=== PATIENT | male | born 1960 | race Caucasian/White ===

== ENCOUNTER → 2020-03-05 | Outpatient (CLI) | payer MEDICARE, OTHER ==
[2020-03-05 09:50] LABS: Appearance, Urine Clear (Clear); Bilirubin, Urine Neg (Neg); Color, Urine Yellow (P-Yellow); Glucose Qualitative, Urine Neg (Normal); Ketones, Urine 1+ (Neg); Leukocyte Esterase, Urine Neg (Neg); Nitrite, Urine Neg (Neg); Protein, Urine Neg (Neg); Source, Urine Clean Catch; Specific Gravity, Urine 1.025 (1.003-1.022); Urobilinogen, Urine NORM (Normal)
[2020-03-05 09:51] LABS: Blood, Urine 1+ (Neg)
[2020-03-05 09:57] LABS: Bacteria Not Seen /hpf; Red Blood Cells, Urine Rare /hpf (0-2); Squamous Epithelial Cells Rare /hpf (Few); White Blood Cells, Urine Not Seen /hpf (0-5)
== END | disposition home or self-care (01) ==
LOC: LAB EV 09:45 → LAB SHORT 09:45
PROVIDERS: Internal Medicine
DX: R35.0 Frequency of micturition (principal)
CPT/HCPCS: 81001

== ENCOUNTER 2020-12-19 14:33 | Inpatient (IN) | payer MEDICARE, OTHER ==
[~2020-12-19] VITALS: Ht 185.4 cm; Wt 66.2 kg
[2020-12-19] MEDS ORDERED: ESOM20 PO (14:44)
[2020-12-19] MEDS ORDERED: Colace100 MG PO (14:45)
[2020-12-19 17:09] LABS: BASOPHILS ABSOLUTE AUTO 0.04 K/mm3 (0.00-0.23); BASOPHILS PERCENT AUTO 0 % (0-2); EOSINOPHILS ABSOLUTE AUTO 0.02 K/mm3 (0.00-0.68); EOSINOPHILS PERCENT AUTO 0 % (0-6); Hematocrit 40.8 % (37.0-53.0); Hemoglobin 13.4 g/dL (13.5-17.5); IMMATURE GRAN ABSOLUTE AUTO 0.04 K/mm3 (0.00-0.10); IMMATURE GRAN PERCENT AUTO 0 % (0-1); LYMPHOCYTES ABSOLUTE AUTO 1.12 K/mm3 (0.84-5.20); LYMPHOCYTES PERCENT AUTO 10 % (21-46); MONOCYTES ABSOLUTE AUTO 0.66 K/mm3 (0.16-1.47); MONOCYTES PERCENT AUTO 6 % (4-13); Mean Corpuscular HGB 30.6 pg (26.0-34.0); Mean Corpuscular HGB Conc 32.8 g/dL (31.5-36.5); Mean Corpuscular Volume 93 fL (80-100); Mean Platelet Volume 10.4 fL (9.1-12.4); NEUTROPHILS ABSOLUTE AUTO 9.36 K/mm3 (1.96-9.15); NEUTROPHILS PERCENT AUTO 83 % (41-73); Platelet Count 237 K/mm3 (150-400); RDW Coefficient Variation 12.3 % (11.7-14.2); RDW Standard Deviation 42.5 fL (35.1-46.3); Red Blood Cell Count 4.38 M/mm3 (4.30-5.90); White Blood Cell Count 11.24 K/mm3 (4.00-11.30)
[2020-12-19 17:15] LABS: International Normalized Ratio 0.97; Prothrombin Time Results 10.5 Sec (9.7-11.5)
[2020-12-19 17:18] LABS: Alanine Aminotransfer (ALT/SGP 31 U/L (12-78); Albumin, Blood 3.6 g/dL (3.4-5.0); Alk Phos 85 U/L (50-136); Anion Gap 5 mmol/L (6-16); Aspartate Aminotrans (AST/SGOT 26 U/L (12-37); Bilirubin, Total 0.9 mg/dL (0.1-1.0); Blood Urea Nitrogen 13 mg/dL (8-24); Bun/Creatinine Ratio 16.1 (12.0-20.0); CO2, Blood 28 mmol/L (21-32); Calcium, Blood 8.6 mg/dL (8.5-10.1); Chloride, Blood 106 mmol/L (98-108); Creatinine, Blood 0.81 mg/dL (0.60-1.20); Globulin, Blood 3.7 g/dL (2.2-4.0); Glomerular Filtration Rate >60 (60-); Glucose, Blood 118 mg/dL (70-99); Potassium, Blood 4.2 mmol/L (3.5-5.5); Sodium, Blood 139 mmol/L (136-145); Total Protein, Blood 7.3 g/dL (6.4-8.2)
[2020-12-19] MEDS ORDERED: MIRALAX17 GM PO (18:33)
[2020-12-19 20:34] LABS: SARS-Cov-2 (COVID-19) PCR, MMC NEGATIVE (NEGATIVE)
[2020-12-20 04:07] LABS: Hematocrit 39.2 % (37.0-53.0); Mean Corpuscular HGB Conc 33.2 g/dL (31.5-36.5); Mean Corpuscular Volume 93 fL (80-100); Mean Platelet Volume 10.2 fL (9.1-12.4); Platelet Count 190 K/mm3 (150-400); RDW Coefficient Variation 12.3 % (11.7-14.2); RDW Standard Deviation 42.1 fL (35.1-46.3); White Blood Cell Count 9.42 K/mm3 (4.00-11.30)
[2020-12-20 04:24] LABS: Anion Gap 5 mmol/L (6-16); Blood Urea Nitrogen 12 mg/dL (8-24); Bun/Creatinine Ratio 17.9 (12.0-20.0); CO2, Blood 27 mmol/L (21-32); Calcium, Blood 8.1 mg/dL (8.5-10.1); Chloride, Blood 106 mmol/L (98-108); Creatinine, Blood 0.67 mg/dL (0.60-1.20); Glomerular Filtration Rate >60 (60-); Glucose, Blood 120 mg/dL (70-99); Potassium, Blood 3.5 mmol/L (3.5-5.5); Sodium, Blood 138 mmol/L (136-145)
--- NOTE | 2020-12-20 04:40 | NUR ---
SHIFT SUMMARY: PT HAS BEEN STABLE SINCE ADMISSION FOR LEFT HIP FX. PT A&O X4. VS WNL. PAIN BEING MANAGED WITH DILAUDID PER EMAR. VALENZUELA CATHETER PATENT AND DRAINING YELLOW URINE. 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 AT BEDSIDE WHO IS PT'S PRIMARY CAREGIVER. PER PT AND SPOUSE, PT AMBULATORY AT BASELINE W/FWW. PT HAS BEEN NPO SINCE MIDNIGHT FOR PLANNED SURGERY TODAY. IVF INFUSING PER ORDERS.
--- NOTE | 2020-12-20 10:22 | NUR ---
0710-[facility] report from previous RN Anuradha, pt sleeping in bed, in room with pt. bed in lowest position, bed rails up x 2, call light within reach 1020- dr Jensen in room consulting with pt/
--- NOTE | 2020-12-20 11:00 | NUR ---
anesthesiologist in room consulting with pt and
--- NOTE | 2020-12-20 12:08 | NUR ---
12/20/20 1206 Margarita Lucia PT RECIEVED TWO GRAMS OF ANCEF IVPB FROM DR BRYSON AT 1150
--- NOTE | 2020-12-20 16:24 | NUR ---
SHIFT SUMMARY: POST OP VSS AND CONTINUING FOR ANOTHER HR. PT'S IS IN ROOM WITH PT. PT IS TOLERATING PO INTAKE, CRUSHED PILLS, FLUIDS WHILE SITTING UP. PT WILL RECEIVE A SWALLOW STUDY TOMORROW. AQUACEL L HIP C/D/I, NO SHADOWING. CAPILLARY REFILL OPERATIVE LIMB <3 SECONDS, LIMB WARM/PINK, NO CALF TENDERNESS. VALENZUELA CATHETER PATENT/DRAINING CLEAR YELLOW URINE. PT RATES PAIN AT 3/10 FOLLOWING ANALGESIA PER AUG.
--- NOTE | 2020-12-20 17:21 | NUR ---
physical therapy in with pt and
[2020-12-21 04:31] LABS: BASOPHILS ABSOLUTE AUTO 0.03 K/mm3 (0.00-0.23); BASOPHILS PERCENT AUTO 0 % (0-2); EOSINOPHILS PERCENT AUTO 0 % (0-6); Hematocrit 32.2 % (37.0-53.0); Hemoglobin 10.6 g/dL (13.5-17.5); LYMPHOCYTES PERCENT AUTO 11 % (21-46); MONOCYTES PERCENT AUTO 12 % (4-13); Mean Corpuscular HGB 30.5 pg (26.0-34.0); Mean Corpuscular HGB Conc 32.9 g/dL (31.5-36.5); Mean Corpuscular Volume 93 fL (80-100); Mean Platelet Volume 10.6 fL (9.1-12.4); Platelet Count 180 K/mm3 (150-400); RDW Coefficient Variation 12.1 % (11.7-14.2); RDW Standard Deviation 41.6 fL (35.1-46.3); Red Blood Cell Count 3.47 M/mm3 (4.30-5.90); White Blood Cell Count 12.31 K/mm3 (4.00-11.30)
[2020-12-21 05:13] LABS: EOSINOPHILS ABSOLUTE AUTO 0.01 K/mm3 (0.00-0.68); IMMATURE GRAN ABSOLUTE AUTO 0.06 K/mm3 (0.00-0.10); IMMATURE GRAN PERCENT AUTO 1 % (0-1); LYMPHOCYTES ABSOLUTE AUTO 1.42 K/mm3 (0.84-5.20); NEUTROPHILS ABSOLUTE AUTO 9.59 K/mm3 (1.96-9.15); NEUTROPHILS PERCENT AUTO 76 % (41-73)
--- NOTE | 2020-12-21 07:53 | NUR ---
POD 1 S/P LEFT SINDY HIP. PT VSS T/O. DRESSING CDI. PT REP PAIN JEANNETTE T/O NIGHT, MED FOR PAIN X1 THIS AM. PT REPOSITIONED JEANNETTE. PT ASSISTED W/PO FLUIDS, NO SWALLOWING DIFFICULTIES NOTED.
--- NOTE | 2020-12-21 19:49 | NUR ---
SHIFT SUMMARY PATIENT ALERT AND ORIENTED THROUGHOUT SHIFT. HX PARKINSON'S WITH CONTRACTURES, QUIET MUMBLED SPEECH, AND TREMORS. TOLERATES REGULAR DIET. NEEDS ASSISTANCE WITH EATING MEALS. TAKES PILLS CRUSHED IN APPLESAUCE. BEDBATH THIS SHIFT. ATTENDS IN PLACE. VALENZUELA INTACT. PLAN TO DISCHARGE HOME 12/22/20. STOOD AT EDGE OF BED WITH PHYSICAL THERAPY. REPORT GIVEN TO [employer]UST VAULT CLERK RN.
[2020-12-22 04:12] LABS: BASOPHILS ABSOLUTE AUTO 0.03 K/mm3 (0.00-0.23); BASOPHILS PERCENT AUTO 0 % (0-2); EOSINOPHILS ABSOLUTE AUTO 0.03 K/mm3 (0.00-0.68); EOSINOPHILS PERCENT AUTO 0 % (0-6); Hematocrit 29.8 % (37.0-53.0); Hemoglobin 9.8 g/dL (13.5-17.5); IMMATURE GRAN ABSOLUTE AUTO 0.02 K/mm3 (0.00-0.10); IMMATURE GRAN PERCENT AUTO 0 % (0-1); LYMPHOCYTES ABSOLUTE AUTO 1.28 K/mm3 (0.84-5.20); LYMPHOCYTES PERCENT AUTO 16 % (21-46); MONOCYTES ABSOLUTE AUTO 0.95 K/mm3 (0.16-1.47); MONOCYTES PERCENT AUTO 12 % (4-13); Mean Corpuscular HGB 30.3 pg (26.0-34.0); Mean Corpuscular HGB Conc 32.9 g/dL (31.5-36.5); Mean Corpuscular Volume 92 fL (80-100); Mean Platelet Volume 9.9 fL (9.1-12.4); NEUTROPHILS ABSOLUTE AUTO 5.78 K/mm3 (1.96-9.15); NEUTROPHILS PERCENT AUTO 72 % (41-73); Platelet Count 159 K/mm3 (150-400); RDW Coefficient Variation 12.3 % (11.7-14.2); RDW Standard Deviation 41.9 fL (35.1-46.3); Red Blood Cell Count 3.23 M/mm3 (4.30-5.90); White Blood Cell Count 8.09 K/mm3 (4.00-11.30)
--- NOTE | 2020-12-22 06:32 | NUR ---
POD 2 S/P LEFT SINDY HIP. PT VSS T/O NIGHT. DRESSING CDI. PT MED FOR PAIN X1 THIS AM, DECLINED NEED FOR PAIN MEDS DURING NIGHT. VALENZUELA D/C THIS AM, AWAITING VOID. PT ASSISTED W/PO FLUIDS, WAS REPOSITIONED JEANNETTE. PT USING SOFT TOUCH CALL LIGHT. PLAN TO D/C HOME W/HH TODAY.
[2020-12-22] MEDS ORDERED: Acetaminophen325 M1 PO (14:08)
[2020-12-22] MEDS ORDERED: XARELTO10 M4 PO (14:09)
[2020-12-22] MEDS ORDERED: HYDR1TAB94 PO (14:09)
--- NOTE | 2020-12-22 16:00 | NUR ---
DISCHARGE W/ HOME HEALTH ESCORTED OUT VIA W/C. ASSISTS INTO TRUCK. SCRIPT SENT. MED CALLED INTO [facility] IN [place]. WORKED W/ PT & OT TODAY; FEELS COMFORTABLE W/ DC HOME.
== END 2020-12-22 16:21 | disposition home health service (06) | DRG 521 ==
LOC: ER 14:33 → ERHOLD 17:56 → SURS 17:56
PROVIDERS: Orthopaedic Surgery; Student in an Organized Health Care Education/Training Program; ADMIT Internal Medicine
PROC: 0SRS03Z Replacement of Left Hip Joint, Femoral Surface with Ceramic Synthetic Substitute, Open Approach (ICD-10-PCS; principal; 2020-12-20 11:00)
DX: S72.002A Fracture of unspecified part of neck of left femur, initial encounter for closed fracture (principal); R53.2 Functional quadriplegia; Z20.822 Contact with and (suspected) exposure to COVID-19; G20 Parkinson's disease; K21.9 Gastro-esophageal reflux disease without esophagitis; W18.39XA Other fall on same level, initial encounter; Z66 Do not resuscitate; Z87.891 Personal history of nicotine dependence; Z88.8 Allergy status to other drugs, medicaments and biological substances; Z88.2 Allergy status to sulfonamides; Z88.1 Allergy status to other antibiotic agents; Z79.899 Other long term (current) drug therapy
CPT/HCPCS: 36415; 51702; 71045; 72170; 73552; 80048; 80053; 85025; 85027; 85610; 85730; 86850; 86900; 86901; 86923; 92610; 93005; 93010; 96374; 96375; 97110; 97162; 97165; 97530; 97535; 99284-25; A9270; C1776; J0171; J0690; J0735; J1100; J1170; J2060; J2250; J2370; J2405; J2704; J2795; J3010; J7030; U0004

== ENCOUNTER → 2020-12-30 | Outpatient (CLI) | payer MEDICARE, OTHER | LOC: LAB 16:39 | DX: M25.452 Effusion, left hip (principal); S72.92XD Unspecified fracture of left femur, subsequent encounter for closed fracture with routine healing; Z88.2 Allergy status to sulfonamides; Z88.6 Allergy status to analgesic agent; Z88.1 Allergy status to other antibiotic agents; Z88.8 Allergy status to other drugs, medicaments and biological substances ==

== ENCOUNTER 2020-12-31 15:09 | Emergency (ER) | payer MEDICARE, OTHER ==
[~2020-12-31] VITALS: Ht 185.4 cm; Wt 64.0 kg
[~2020-12-31 15:09] MED LIST: Acetaminophen325 M1 PO; Colace100 MG PO; ESOM20 PO; HYDR1TAB94 PO; MIRALAX17 GM PO; XARELTO10 M4 PO
[2020-12-31] MEDS ORDERED: ELIQUIS5 M2 PO (17:33)
== END 2020-12-31 18:08 | disposition home or self-care (01) ==
LOC: ER 15:09
DX: I82.409 Acute embolism and thrombosis of unspecified deep veins of unspecified lower extremity (principal); R60.9 Edema, unspecified; I82.412 Acute embolism and thrombosis of left femoral vein; I82.432 Acute embolism and thrombosis of left popliteal vein; Z79.01 Long term (current) use of anticoagulants; Z79.899 Other long term (current) drug therapy
CPT/HCPCS: 93971; 99282

== ENCOUNTER → 2021-01-11 | Outpatient (CLI) | payer MEDICARE, OTHER ==
[~2021-01-11] MED LIST changes: +ELIQUIS5 M2 PO
[2021-01-11 18:33] LABS: Source, Urine Clean Catch
[2021-01-11 18:40] LABS: Appearance, Urine Clear (Clear); Bilirubin, Urine Neg (Neg); Blood, Urine 3+ (Neg); Color, Urine Yellow (P-Yellow); Glucose Qualitative, Urine Neg (Neg); Ketones, Urine Neg (Neg); Leukocyte Esterase, Urine Neg (Neg); Nitrite, Urine Neg (Neg); Protein, Urine 2+ (Neg); Urobilinogen, Urine NORM (Normal)
[2021-01-11 18:54] LABS: Bacteria Few /hpf; Hyaline Casts 0-2 /lpf (0-2); Squamous Epithelial Cells Rare /hpf (Few); White Blood Cells, Urine Not Seen /hpf (0-5)
== END | disposition home or self-care (01) ==
LOC: LAB SHORT 17:25 → LAB 17:25
PROVIDERS: Internal Medicine
DX: G20 Parkinson's disease (principal); N39.0 Urinary tract infection, site not specified; R53.2 Functional quadriplegia
CPT/HCPCS: 81001; 87086

== ENCOUNTER 2022-01-18 10:45 | Emergency (ER) | payer MEDICARE, OTHER ==
[~2022-01-18] VITALS: Ht 185.4 cm; Wt 64.4 kg
[2022-01-18 11:08] LABS: Source, Urine Clean Catch
[2022-01-18 12:00] LABS: Appearance, Urine Clear (Clear); Bilirubin, Urine Neg (Neg); Blood, Urine 3+ (Neg); Color, Urine Yellow (P-Yellow); Glucose Qualitative, Urine Neg (Neg); Ketones, Urine Neg (Neg); Leukocyte Esterase, Urine Neg (Neg); Nitrite, Urine Neg (Neg); Protein, Urine Neg (Neg); Specific Gravity, Urine 1.015 (1.003-1.022); Urobilinogen, Urine NORM (Normal); pH, Urine 6.5 (5.0-8.0)
[2022-01-18 12:13] LABS: Bacteria Rare /hpf; Squamous Epithelial Cells Rare /hpf (Few); White Blood Cells, Urine 0-2 /hpf (0-5)
[2022-01-18 12:18] LABS: Bun/Creatinine Ratio 17.6 (12.0-20.0); Calcium, Blood 8.9 mg/dL (8.5-10.1); Creatinine, Blood 0.63 mg/dL (0.60-1.20)
[2022-01-18 12:26] LABS: BASOPHILS ABSOLUTE AUTO 0.04 K/mm3 (0.00-0.23); BASOPHILS PERCENT AUTO 1 % (0-2); EOSINOPHILS ABSOLUTE AUTO 0.07 K/mm3 (0.00-0.68); EOSINOPHILS PERCENT AUTO 1 % (0-6); Hematocrit 40.7 % (37.0-53.0); Hemoglobin 13.6 g/dL (13.5-17.5); IMMATURE GRAN PERCENT AUTO 0 % (0-1); LYMPHOCYTES ABSOLUTE AUTO 2.01 K/mm3 (0.84-5.20); LYMPHOCYTES PERCENT AUTO 28 % (21-46); MONOCYTES ABSOLUTE AUTO 0.56 K/mm3 (0.16-1.47); MONOCYTES PERCENT AUTO 8 % (4-13); Mean Corpuscular HGB Conc 33.4 g/dL (31.5-36.5); Mean Corpuscular Volume 90 fL (80-100); Mean Platelet Volume 10.3 fL (9.1-12.4); NEUTROPHILS PERCENT AUTO 63 % (41-73); Platelet Count 232 K/mm3 (150-400); RDW Coefficient Variation 12.2 % (11.7-14.2); Red Blood Cell Count 4.53 M/mm3 (4.30-5.90); White Blood Cell Count 7.28 K/mm3 (4.00-11.30)
[2022-01-18] MEDS ORDERED: CEPH500 PO (13:08)
[2022-01-18] MEDS ORDERED: TAMS.4ER PO (13:08)
== END 2022-01-18 13:48 | disposition home or self-care (01) ==
LOC: ER 10:45
PROVIDERS: Emergency Medicine
DX: R31.9 Hematuria, unspecified (principal); R30.0 Dysuria; R53.2 Functional quadriplegia; G20 Parkinson's disease; Z88.6 Allergy status to analgesic agent; Z88.1 Allergy status to other antibiotic agents; Z88.2 Allergy status to sulfonamides; Z88.8 Allergy status to other drugs, medicaments and biological substances; Z79.899 Other long term (current) drug therapy; Z79.01 Long term (current) use of anticoagulants
CPT/HCPCS: 80048; 81001; 85025; J7030

== ENCOUNTER → 2022-08-01 | Outpatient (CLI) | payer MEDICARE, OTHER ==
[~2022-08-01] MED LIST changes: +CEPH500 PO; +TAMS.4ER PO
[2022-08-01 15:15] LABS: BASOPHILS ABSOLUTE AUTO 0.03 K/mm3 (0.00-0.23); BASOPHILS PERCENT AUTO 0 % (0-2); EOSINOPHILS PERCENT AUTO 0 % (0-6); Hematocrit 42.9 % (37.0-53.0); Hemoglobin 14.4 g/dL (13.5-17.5); IMMATURE GRAN ABSOLUTE AUTO 0.06 K/mm3 (0.00-0.10); IMMATURE GRAN PERCENT AUTO 0 % (0-1); LYMPHOCYTES ABSOLUTE AUTO 0.62 K/mm3 (0.84-5.20); LYMPHOCYTES PERCENT AUTO 4 % (21-46); MONOCYTES ABSOLUTE AUTO 0.66 K/mm3 (0.16-1.47); MONOCYTES PERCENT AUTO 5 % (4-13); Mean Corpuscular HGB 30.4 pg (26.0-34.0); Mean Corpuscular HGB Conc 33.6 g/dL (31.5-36.5); Mean Corpuscular Volume 91 fL (80-100); Mean Platelet Volume 9.9 fL (9.1-12.4); NEUTROPHILS ABSOLUTE AUTO 12.78 K/mm3 (1.96-9.15); NEUTROPHILS PERCENT AUTO 90 % (41-73); Platelet Count 247 K/mm3 (150-400); RDW Coefficient Variation 12.3 % (11.7-14.2); RDW Standard Deviation 40.4 fL (35.1-46.3); Red Blood Cell Count 4.74 M/mm3 (4.30-5.90); White Blood Cell Count 14.15 K/mm3 (4.00-11.30)
[2022-08-01 15:24] LABS: Albumin, Blood 4.2 g/dL (3.4-5.0); Albumin/Globulin Ratio 1.1 (0.8-1.8); Bilirubin, Total 0.9 mg/dL (0.1-1.0); Bun/Creatinine Ratio 16.8 (12.0-20.0); Calcium, Blood 9.6 mg/dL (8.5-10.1); Creatinine, Blood 1.13 mg/dL (0.60-1.20); Total Protein, Blood 8.2 g/dL (6.4-8.2)
== END | disposition home or self-care (01) ==
LOC: LAB SHORT 15:10 → LAB 15:10
PROVIDERS: Emergency Medicine
DX: R35.0 Frequency of micturition (principal)
CPT/HCPCS: 80053; 85025

== ENCOUNTER 2024-10-22 11:34 | Day surgery (SDC) | payer MEDICARE, OTHER ==
[~2024-10-22] VITALS: Ht 185.4 cm; Wt 57.2 kg
[~2024-10-22 11:34] MED LIST changes: +Lactated Ringer's 1,000 ML IV ONE; +Lidocaine HCl 2% 10 ML SDA ONE
[2024-10-22] MEDS ORDERED: Lactated Ringer's 1,000 ML IV ONE (12:20)
[2024-10-22] MEDS ORDERED: MIRT15 PO (12:21)
[2024-10-22] MEDS ORDERED: CODACE30 PO (12:21)
[2024-10-22] MEDS ORDERED: VITAMIN D5000 UNIT PO (12:22)
[2024-10-22] MEDS ORDERED: LORA.5 PO (12:23)
[2024-10-22] MEDS ORDERED: CeFAZolin Sodium 2,000 MG VIAL ONE (12:39)
[2024-10-22] MEDS ORDERED: FentaNYL Citrate 50 MCG/ML 2 ML Injection ONE ×2 (13:32→14:28)
[2024-10-22] MEDS ORDERED: propofoL 20 ML IV ONE (13:32)
[2024-10-22] MEDS ORDERED: Phenylephrine HCl 100 MCG/ML-NS 10MLSYR (1MG/10ML) ONE (13:40)
[2024-10-22] MEDS ORDERED: Dexamethasone Sod Phos 10 MG/ML 1ML VIAL ONE (14:01)
[2024-10-22] MEDS ORDERED: Ondansetron HCl 2 MG / ML 2ML Vial ONE ×2 (14:01→15:01)
[2024-10-22] MEDS ORDERED: TraMADol HCl 50 MG Tab ONE ×2 (14:50→15:29)
--- NOTE | 2024-10-22 14:59 | NUR ---
10/22/24 1459 Kellie Hanson 1430 , GARCIA AT BEDSIDE. 1442 ASSISTING PT WITH DRINK AND SNACKS.
[2024-10-22 16:20] VITALS: BP 133/87
== END 2024-10-22 16:10 | disposition home or self-care (01) ==
LOC: ORSCSDS 11:34
PROVIDERS: Orthopaedic Surgery
PROC: 0X6L0Z0 Detachment at Right Thumb, Complete, Open Approach (ICD-10-PCS; principal; 2024-10-22 13:15)
DX: M24.541 Contracture, right hand (principal); S61.001A Unspecified open wound of right thumb without damage to nail, initial encounter; G20.A1 Parkinson's disease without dyskinesia, without mention of fluctuations; K21.9 Gastro-esophageal reflux disease without esophagitis; Z79.899 Other long term (current) drug therapy
CPT/HCPCS: A9270; J0690; J1100; J2003; J2371; J2405; J2704; J3010; J7120